=== PATIENT | female | born 2000 | race Asian ===

== ENCOUNTER 2020-07-23 10:40 | Outpatient (REF) | payer OTHER, SELFPAY ==
--- NOTE | 2020-07-23 10:46 | XR_ITS ---
EXAMINATION: XR LUMBOSACRAL SPINE CLINICAL INFORMATION: Radiculopathy, lumbar region COMPARISON: 06/12/2020 TECHNIQUE: Three views of the lumbosacral spine. FINDINGS: Mild left convex curvature of the lumbar spine is unchanged. Vertebral body and disc height is maintained without spondylolysis or spondylolisthesis. The sacroiliac joints are unremarkable. XR/XR lumbar spine 2-3V IMPRESSION: Unremarkable examination.
== END 2020-07-23 10:41 | disposition home or self-care (01) ==
LOC: HO.HMGCX 10:40
PROVIDERS: PCP Internal Medicine; Visit Provider Internal Medicine
DX: M54.16 Radiculopathy, lumbar region (principal)
CPT/HCPCS: 72100

== ENCOUNTER 2021-10-20 13:55 | Outpatient (REF) | payer OTHER, SELFPAY ==
[2021-10-20 17:20] LABS: Alanine Aminotransferase 16 U/L (0-31); Albumin Level 4.6 g/dL (3.5-5.0); Alkaline Phosphatase 57 U/L (39-117); Anion Gap 10 (12-20); Aspartate Amino Transferase 19 U/L (5-31); Bilirubin Total 0.3 mg/dL (0.0-1.0); Blood Urea Nitrogen 16 mg/dL (9-16); Calcium 9.5 mg/dL (8.4-10.2); Carbon Dioxide 25 mmol/L (22-29); Chloride 106 mmol/L (96-108); Cholesterol 152 mg/dL; Estimated Glomerular Filt Rate > 60; Glucose Fasting 97 mg/dL (60-99); HDL Cholesterol 46 mg/dL; Potassium 4.3 mmol/L (3.3-5.1); Sodium 137 mmol/L (135-145); Total Protein 7.4 g/dL (6.5-8.0)
[2021-10-20 17:26] LABS: TSH reflex Free T4 1.43 uIU/mL (0.32-4.0)
[2021-10-20 17:28] LABS: Vitamin B12 310 pg/mL (200-900)
[2021-10-20 17:30] LABS: LDL Cholesterol Calculated 99 mg/dl; Triglycerides 35 mg/dL
[2021-10-25 05:51] LABS: Vitamin D 25-OH, D2 <4 ng/mL; Vitamin D 25-OH, D3 15 ng/mL; Vitamin D 25-OH, Total 15 ng/mL (30-100)
== END 2021-10-20 13:56 | disposition home or self-care (01) ==
LOC: HO.HMGCLDS 13:55
PROVIDERS: Visit Provider Internal Medicine
DX: Z00.01 Encounter for general adult medical examination with abnormal findings (principal); M41.9 Scoliosis, unspecified; R20.2 Paresthesia of skin
CPT/HCPCS: 36415; 80053; 80061; 82306; 82607; 84443

== ENCOUNTER 2022-01-03 15:00 | Outpatient (RCR) | payer OTHER, SELFPAY ==
--- NOTE | 2021-11-12 15:54 | MHC.PT.EP ---
[facility] [place] [facility] [place] [facility] [place] [facility] [address] Rozina Davila [address] [phone] F: [phone] F: [phone] F: [phone] F: [phone] Physical Therapy Plan of Care Date of Evaluation: Date of Surgery: n/a Diagnosis: low back pain, scoliosis Assessment: Patient is a 21 year old female presenting to PT with complaints of pain in her low back. Pt reports onset of pain began 3 years ago due to being . She presents today with impairments in pain, lumbar AROM, +ttp R piriformis, hip strength, core strength. Pt's current occupation is none, with baseline physical activities including caring for 3 young kids, ADLs, ambulation, lifting. Pt expresses usp goal of reducing pain, and is motivated to work towards this in PT. Clinical presentation today is most consistent with signs and sx associated with possible piriformis syndrome and pt will benefit from skilled PT to address the following problems and impairments noted upon evaluation: pain, lumbar AROM, +ttp R piriformis, hip strength, core strength. These problems limit the patient with the following functional activities: lifting, caring for children, ADLs. The prescribed treatment plan of care is medically necessary. Co-morbidities of none were identified and taken into considerations of plan of care. Pt was educated on HEP, role of PT, prognosis, POC. Frequency and Duration: The patient will be seen 2 x week x 4 weeks Short Term Goals: Pt will demonstrate lumbar AROM in available range with min to no pain in 2 weeks. Pt will demonstrate improved hip MMT by 1/3 grade in 2 weeks for improved lumbopelvic stability. Pt will demonstrate ability to perform TA contraction with good muscle recruitment in 2 weeks. Quality Assurance Practice Manager Goals: Pt will demonstrate ability to lift her kids with min to no pain in 4 weeks for improved ability to care for her kids. Pt will demonstrate ability to complete all ADLs with min to no pain in 4 weeks for return to PLOF. Treatment Plan: Modalities to reduce pain, spasms and effusion. Manual therapy to restore motion and function. Therapeutic exercise to improve strength and flexibility. Neuromuscular re-education for posture and balance. Therapeutic activities to return to functional activities of daily living. Electronically signed by: Amina Vargas, PT, DPT, ATC Please sign and return to therapist. Thank you for your referral.
--- NOTE | 2022-01-25 08:07 | MHC.PT.DC ---
[facility] [place] Office [place] Office [place] Office [address] Rozina Davila [address] [phone] F: [phone] F: [phone] F: [phone] F: [phone] Physical Therapy Discharge Report Diagnosis: low back pain, scoliosis Date of Surgery: n/a Date of Evaluation: 11/12/21 Date of Discharge: 01/25/22 Treatments to Date: 7 Cancellations to Date: 4 No Shows to Date: 1 Discharge Status: Discharge Summary: Pt no showed her final scheduled appointment which was supposed to be her last session. Pt has not reached out to be rescheduled. Electronically signed by: Amina Vargas, PT, DPT, ATC Please sign and return to therapist. Thank you for your referral.
== END 2022-01-25 08:08 | disposition home or self-care (01) ==
LOC: HO.PTCHIC 15:00
PROVIDERS: PCP Internal Medicine; Visit Provider Internal Medicine
DX: M41.9 Scoliosis, unspecified (principal); M54.50 Low back pain, unspecified
CPT/HCPCS: 97110; 97140; 97161

== ENCOUNTER 2022-05-30 14:01 | Outpatient (REF) | payer OTHER, SELFPAY ==
[2022-05-30 15:03] LABS: Influenza A PCR NEGATIVE (Negative); Influenza B PCR NEGATIVE (Negative); Resp Syncy Virus RNA Qual PCR NEGATIVE (Negative); SARS COV2 PCR INHOUSE NEGATIVE (Negative)
== END 2022-05-30 14:02 | disposition home or self-care (01) ==
LOC: HO.LNP 14:01
PROVIDERS: Visit Provider Internal Medicine
DX: J02.9 Acute pharyngitis, unspecified (principal); R43.9 Unspecified disturbances of smell and taste; Z20.822 Contact with and (suspected) exposure to COVID-19
CPT/HCPCS: 0241U

== ENCOUNTER 2022-07-23 14:14 | Outpatient (REF) | payer OTHER, SELFPAY ==
--- NOTE | ~2022-07-23 | XR_ITS ---
EXAMINATION: XR CHEST CLINICAL INFORMATION: Cough COMPARISON: Chest x-ray August 16, 2018 TECHNIQUE: 2 views of the chest were obtained. FINDINGS: Cardiac silhouette is normal in size. The lungs are well aerated. There is no lobar consolidation. No pleural effusion or pneumothorax. No acute osseous abnormality. XR/XR chest 2V IMPRESSION: No acute pulmonary pathology.
== END 2022-07-23 14:15 | disposition home or self-care (01) ==
LOC: HO.HMGCX 14:14
PROVIDERS: PCP Internal Medicine; Visit Provider Physician Assistant Medical
DX: R05.9 Cough, unspecified (principal)
CPT/HCPCS: 71046

== ENCOUNTER 2022-12-27 09:06 | Outpatient (REF) | payer OTHER, SELFPAY ==
[2022-12-27 11:30] LABS: Hematocrit 39.3 % (37.0-47.0); Hemoglobin 12.5 g/dl (12.0-16.0); Mean Corpuscular HGB Conc 31.8 g/dl (31.0-35.0); Mean Corpuscular Hemoglobin 27.7 pg (27.0-33.0); Mean Corpuscular Volume 87.1 fL (80.0-98.0); Mean Platelet Volume 11.2 fL (9.4-12.3); Platelet Count 256 X10*3/uL (160-400); Red Blood Count 4.51 X10*6/uL (4.20-5.50); Red Cell Distribution Width 13.5 % (11.0-16.0); White Blood Count 6.7 X10*3/uL (4.8-10.8)
[2022-12-27 12:01] LABS: Alanine Aminotransferase 15 U/L (0-31); Albumin Level 4.3 g/dL (3.5-5.0); Alkaline Phosphatase 62 U/L (39-117); Aspartate Amino Transferase 18 U/L (5-31); Bilirubin Direct 0.1 mg/dL (0.0-0.5); Bilirubin Total 0.3 mg/dL (0.0-1.0); Cholesterol 180 mg/dL; HDL Cholesterol 52 mg/dL; LDL Cholesterol Calculated 116 mg/dl; Total Protein 7.3 g/dL (6.5-8.0); Triglycerides 62 mg/dL
[2022-12-27 12:05] LABS: Thyroid Stimulating Hormone 2.59 uIU/mL (0.32-4.0)
== END 2022-12-27 09:07 | disposition home or self-care (01) ==
LOC: HO.HMGCLDS 09:06
PROVIDERS: PCP Internal Medicine; Visit Provider Internal Medicine
DX: R42 Dizziness and giddiness (principal)
CPT/HCPCS: 36415; 80061; 80076; 84443; 85027

== ENCOUNTER 2023-04-21 13:25 | Outpatient (AMB) | payer OTHER, SELFPAY ==
[2023-04-21 13:27] VITALS: BP 122/70; PULSE 88; O2SAT 99; BMI 27.0
--- NOTE | 2023-04-21 13:27 | MHC.PC.OV ---
Vital Signs 04/21/23 13:27 Height 5 ft 3 in Weight 152 lb 8 oz BMI 27.0 BP 122/70 Blood Pressure Location Lt brachial Position Sitting Pulse 88 Pulse Source Pulse Oximeter Pulse Oximetry (%) 99 Intake Visit Reasons: PHY Allergies No Known Allergies Allergy (Verified 04/21/23 13:30) Medication List - Last Reconciled 04/21/23 by Hubert Cox MD No Known Home Meds Tobacco use date assessed: 04/21/23 Dental Screening Dental Screen Date: 04/21/23 Did you have a dental visit in the last 12 months?: No Did you have a dental problem in the last 6 months where you did not have access to dental care?: No Was dental information given to patient?: Yes HPI PHY HPI Details Patient is 23-year-old female came in today for physical examination She is complaining of recurrent headaches sometimes last up to a week. Patient says that headache starts above her left eye and they are throbbing in nature and usually half ahead and sometimes it goes all over her head. There is no flashes of light no nausea vomiting associated. I am starting her on amitriptyline 10 mg to be taken at night we will book another appointment in 3 weeks to see how patient is doing. Patient has had 3 times epidural injection for deliveries. Now she is complaining of pain lower thoracic area and is requesting a physical therapy. She has had similar pain in the past and physical therapy did help her. She is in need of OBGYN referral which I have placed patient would like to go to [facility]. She is deficient in vitamin-D I have sent supplement. Flu shot was given today. Follow-up 3 weeks for headache and 1 year for physical exam. [facility] Surgical History No pertinent past surgical history Family History Father HTN (hypertension) Mother No problems noted. Maternal Aunt Breast cancer Social History Housing: House Patient Tobacco Use Status: Never used Tobacco e-Cigarette/Vaping Use: Never Used Current occupational status: unemployed Cognitive needs: No Hearing needs: No Vision needs: No Questionnaire PHQ-9 Over the last 2 weeks, how often have you been bothered by any of the following problems? 1. Little interest or pleasure in doing things: not at all 2. Feeling down, depressed, or hopeless: not at all 3. Trouble falling or staying asleep, or sleeping too much: not at all 4. Feeling tired or having little energy: not at all 5. Poor appetite or overeating: not at all 6. Feeling bad about yourself - or that you are a failure or have let yourself or your family down: not at all 7. Trouble concentrating on things, such as reading the newspaper or watching television: not at all 8. Moving or speaking so slowly that other people could have noticed. Or the opposite - being so fidgety or restless that you have been moving around a lot more than usual: not at all 9. Thoughts that you would be better off or of hurting yourself in some way: not at all Total score: 0 Depression Screening Interpretation: Negative Depression Screening Done: Yes 95505 - PHQ-9 Billing: Yes Source: Developed by Drs. Santos Amato, Caitlin Adams, Riley Silva and colleagues, with an educational chastity from [employer]. Thrive Questionnaire Date Thrive assessed: 04/21/23 I am a: Patient What is your living situation today?: I have a steady place to live Within the past 12 months, did the food you bought not last and you didn't have the money to get more?: Never true Within the past 12 months, did you worry whether your food would run out before you got money to buy more?: Never true Do you have trouble paying for medicines?: No Do you have trouble getting transportation to medical appointments?: No Do you have trouble paying your heating and electricity bill?: No Do you have trouble taking care of your child, family member or friend?: No Do you have trouble with day-to-day activities such as bathing, preparing meals, shopping, managing finances, etc.?: No Are you currently unemployed and looking for a job?: No Are you interested in more education?: No Please select the resources that you would like help with: None Currently or been in a relationship where the following occur: I choose not to answer this question CEDRICK-7 AMB Questionnaire CEDRICK-7 Date CEDRICK - 7 assessed: 04/21/23 Feeling nervous, anxious, or on edge: 0 = Not at all Not being able to stop or control worryin = Not at all Worrying too much about different things: 0 = Not at all Trouble relaxin = Not at all Being so restless that it is hard to sit still: 0 = Not at all Becoming easily annoyed or irritable: 0 = Not at all Feeling afraid as if something awful might happen: 0 = Not at all Total CEDRICK-7 score (0-4 normal; 5-9 mild; 10-14 moderate; 15-21 severe): 0 Source: Developed by Drs. Santos Amato, Caitlin Adams, Riley Silva and colleagues, with an educational chastity from [employer]. CEDRICK-7 Assessment Billing CEDRICK-7 Assessment Tool: CEDRICK-7 Assessment 98092 Review of Systems Const Denies chills and Denies fever(s) Eyes Denies blurry vision ENT Denies nasal discharge, Denies nasal obstruction, Denies odynophagia and Denies sinus pain Card Denies chest pain at rest and Denies chest pain with activity Resp Denies cough and Denies hemoptysis GI Denies diarrhea, Denies odynophagia, Denies vomiting and Denies hematemesis Reports as per HPI Musc Denies abnormal gait Skin/Breast Reports as per HPI Neuro Denies Neuro-related abnormal movements, Denies Abnormal speech present, Denies abnormal gait and Denies Sensory deficit (Neuro) Psych Denies mood swings and Denies paranoia Endo Reports as per HPI Vu/Lymph Reports as per HPI Aller/Immun Reports as per HPI Physical exam (Primary Care) Vital Signs: Last Vital Signs Pulse 88 04/21/23 13:27 BP 122/70 04/21/23 13:27 Pulse Ox 99 04/21/23 13:27 BMI result Body Mass Index 27.0 Tobacco/Smoking Status: Tobacco use Status Tobacco use date assessed 04/21/23 04/21/23 13:34 Patient Tobacco Use Status Never used Tobacco 04/21/23 13:34 e-Cigarette/Vaping Use Never Used 04/21/23 13:34 PHQ-9: PHQ-9 Score PHQ-9: Total score 0 04/21/23 13:51 Depression Screening Interpretation: Negative Thrive Assessment: Date of Thrive Assessment Date Thrive assessed 04/21/23 04/21/23 13:34 Currently or been in a relationship where the following occur: I choose not to answer this question Const General: cooperative, comfortable and no acute distress Orientation/consciousness: patient oriented x3 HENMT Head: Yes normocephalic and Yes atraumatic Eyes General: appearance normal, both eyes and all related structures Pupils: Equal, round and reactive pupils present EOM: EOMs intact bilaterally Neck Neck: Yes supple and No lymphadenopathy Thyroid: Thyroid normal Lymphatic: no lymphadenopathy noted Chest Breast/axilla palpation: normal palpation of the breasts Resp Effort & Inspection: normal respiratory effort and able to speak in complete sentences Auscultation: clear to auscultation bilaterally Cardio Heart sounds: S1 normal heart sound present and S2 normal heart sound present GI Palpation (GI): Soft to palpation and nontender Auscultation: normal bowel sounds General: Yes no CVA tenderness Back/Spine/Pelvis Back: no CVA tenderness Skin General skin exam: elasticity normal and turgor normal Neuro General: patient oriented x3 and gait normal Cranial nerves: Yes Equal, round and reactive pupils present Speech: No Abnormal speech present Sensory Exam: No Sensory deficit (Neuro) Coordination: tandem gait normal and Romberg test negative Extrem General: Yes normal exam except as noted and No edema Office Procedures Flu Questionnaire Does the patient have a severe egg allergy?: No Does the patient have severe life threatening allergies?: No Does the patient have a fever or illness today?: No Has the patient ever had Guillain-[place] Syndrome?: No Has the patient ever had any past reaction to a flu shot?: No Immunizations flu vacc [id number] 6mos up(PF) 60 mcg(15 mcgx4)/0.5 mL IM syringe Performing Provider: Hubert Cox MD Performing Location: [facility] Administered by: Miguel Carolina CMA on 04/21/23 14:03 Dose Route Admin Location Dispensed Lot Number Expiration Date NDC Head Baggage Porter 0.5 mL IM Left Deltoid 0.5 mL [id number] 01/14/24 [id number] LUVHAN VIS Given Date VIS Provided VIS Publication Date 04/21/23 Single Vaccine 21 Eligibility Eligibility Date Funding Source Not [facility] Eligible 04/21/23 Private Assessment and Plan Assessment & Plan (1) Encounter for general adult medical examination with abnormal findings: Code(s): Z00.01 - Encounter for general adult medical examination with abnormal findings (2) Thoracic back pain: Code(s): M54.6 - Pain in thoracic spine Qualifiers: Back pain laterality: midline Chronicity: chronic Qualified Code(s): M54.6 - Pain in thoracic spine; G89.29 - Other chronic pain (3) Recurrent upper respiratory infection (URI): Code(s): J06.9 - Acute upper respiratory infection, unspecified (4) Migraine headache: Code(s): G43.909 - Migraine, unspecified, not intractable, without status migrainosus Qualifiers: Intractability: intractable Migraine type: periodic headache syndrome Qualified Code(s): G43.C1 - Periodic headache syndromes in child or adult, intractable Plan Patient is 23-year-old female came in today for physical examination She is complaining of recurrent headaches sometimes last up to a week. Patient says that headache starts above her left eye and they are throbbing in nature and usually half ahead and sometimes it goes all over her head. There is no flashes of light no nausea vomiting associated. I am starting her on amitriptyline 10 mg to be taken at night we will book another appointment in 3 weeks to see how patient is doing. Patient has had 3 times epidural injection for deliveries. Now she is complaining of pain lower thoracic area and is requesting a physical therapy. She has had similar pain in the past and physical therapy did help her. She is in need of OBGYN referral which I have placed [facility] She is deficient in vitamin-D I have sent supplement. Flu shot was given today. Follow-up 3 weeks for headache and 1 year for physical exam. Orders: Orders PT Evaluation and Treatment Today M54.6 - Pain in thoracic spine Complete Blood Count Auto Diff Today G43.909 - Migraine, unspecified, not intractable, without status migrainosus, J06.9 - Acute upper respiratory infection, unspecified, M54.6 - Pain in thoracic spine, Z00.01 - Encounter for general adult medical examination with abnormal findings Comprehensive [place]. Panel Fast Today G43.909 - Migraine, unspecified, not intractable, without status migrainosus, J06.9 - Acute upper respiratory infection, unspecified, M54.6 - Pain in thoracic spine, Z00.01 - Encounter for general adult medical examination with abnormal findings TSH reflex Free T4 Today G43.909 - Migraine, unspecified, not intractable, without status migrainosus, J06.9 - Acute upper respiratory infection, unspecified, M54.6 - Pain in thoracic spine, Z00.01 - Encounter for general adult medical examination with abnormal findings Vitamin D 25-OH (D2 and D3) Today G43.909 - Migraine, unspecified, not intractable, without status migrainosus, J06.9 - Acute upper respiratory infection, unspecified, M54.6 - Pain in thoracic spine, Z00.01 - Encounter for general adult medical examination with abnormal findings Lipid Panel Today G43.909 - Migraine, unspecified, not intractable, without status migrainosus, J06.9 - Acute upper respiratory infection, unspecified, M54.6 - Pain in thoracic spine, Z00.01 - Encounter for general adult medical examination with abnormal findings Referrals [employer] MARKETING MANAGER Referral Z01.419 - Encounter for gynecological examination (general) (routine) without abnormal findings Medications: New amitriptyline 10 mg PO BEDTIME 30 tabs 0RF cholecalciferol (vitamin D3) 25 mcg PO DAILY 90 days 90 caps 3RF Coding Level of Care Code Est Pt Prev Care 18-39y(12026) Diagnoses Encounter for general adult medical examination with abnormal findings Z00.01 Chronic midline thoracic back pain M54.6; G89.29 Back pain laterality: midline Chronicity: chronic Recurrent upper respiratory infection (URI) J06.9 Intractable periodic headache syndrome G43.C1 Intractability: intractable Migraine type: periodic headache syndrome Additional Codes CEDRICK-7 Assessment Billing - CEDRICK-7 Assessment Tool: CEDRICK-7 Assessment 79451 ([id number])
== END 2023-04-21 14:26 | disposition home or self-care (01) ==
PROVIDERS: Visit Provider Internal Medicine
DX: Z00.01 Encounter for general adult medical examination with abnormal findings (principal); M54.6 Pain in thoracic spine; G89.29 Other chronic pain; J06.9 Acute upper respiratory infection, unspecified; G43.C1 Periodic headache syndromes in child or adult, intractable; Z23 Encounter for immunization
CPT/HCPCS: 90471; 90686; 99395

== ENCOUNTER 2023-04-26 11:37 | Outpatient (REF) | payer OTHER, SELFPAY ==
[2023-04-30 23:43] LABS: Vitamin D 25-OH, D2 <4 ng/mL; Vitamin D 25-OH, D3 16 ng/mL; Vitamin D 25-OH, Total 16 ng/mL (30-100)
== END 2023-04-26 11:38 | disposition home or self-care (01) ==
LOC: HO.HMGCLDS 11:37
PROVIDERS: PCP Internal Medicine; Visit Provider Internal Medicine
DX: Z00.01 Encounter for general adult medical examination with abnormal findings (principal); J06.9 Acute upper respiratory infection, unspecified; G43.909 Migraine, unspecified, not intractable, without status migrainosus; M54.6 Pain in thoracic spine
CPT/HCPCS: 36415; 80053; 80061; 82306; 84443; 85025

== ENCOUNTER 2023-05-04 08:42 | Outpatient (AMB) | payer OTHER, SELFPAY ==
--- NOTE | 2023-05-04 08:57 | A.OFFPC_ITS ---
Intake Visit Reasons: 3 week fu (android [phone]) Allergies No Known Allergies Allergy (Verified 05/04/23 08:57) Medication List - Last Reconciled 05/04/23 by Hubert Cox MD amitriptyline 10 mg PO BEDTIME cholecalciferol (vitamin D3) 25 mcg PO DAILY 90 days Tobacco use date assessed: 05/04/23 Dental Screening Dental Screen Date: 05/04/23 Did you have a dental visit in the last 12 months?: No Did you have a dental problem in the last 6 months where you did not have access to dental care?: No Was dental information given to patient?: Patient declined HPI 3 week fu (android [phone]) HPI Details Patient is 23-year-old female this is a telemedicine video conference Patient was having migraine headaches she was started on amitriptyline 10 mg to be taken at night. she is feeling much better she is sleeping better and her headaches has resolved. I have sent refill for the patient she may continue that for 3 months and then after that she may stop and see how she feels. Labs done recently reviewed with the patient Her vitamin-D level is low, patient is already on supplement. [facility] Surgical History No pertinent past surgical history Family History Father HTN (hypertension) Mother No problems noted. Maternal Aunt Breast cancer Social History Housing: House Patient Tobacco Use Status: Never used Tobacco e-Cigarette/Vaping Use: Never Used Current occupational status: unemployed Cognitive needs: No Hearing needs: No Vision needs: No Questionnaire Thrive Questionnaire Date Thrive assessed: 04/21/23 AUDIT C Alcohol Use Questionnaire (AUDIT-C) 1. How often do you have a drink containing alcohol?: Never 3. How often do you have six or more drinks on one occasion?: Never Total Score: 0 Score Reviewed/Action Taken: Yes CEDRICK-7 AMB Questionnaire CEDRICK-7 Date CEDRICK - 7 assessed: 04/21/23 Source: Developed by Drs. Santos Amato, Caitlin Adams, Riley Silva and colleagues, with an educational chastity from [employer]. Review of Systems Const Denies chills and Denies fever(s) ENT Denies epistaxis and Denies nasal discharge Card Denies chest pain Resp Denies chest congestion, Denies cough and Denies hemoptysis GI Denies diarrhea and Denies nausea Skin/Breast Denies rash Neuro Reports no additional complaints Psych Reports no additional complaints Endo Reports no additional complaints Physical exam (Primary Care) Tobacco/Smoking Status: Tobacco use Status Tobacco use date assessed 05/04/23 05/04/23 08:58 Patient Tobacco Use Status Never used Tobacco 05/04/23 08:58 e-Cigarette/Vaping Use Never Used 05/04/23 08:58 Thrive Assessment: Date of Thrive Assessment Date Thrive assessed 04/21/23 05/04/23 08:58 Telehealth Telehealth Location of provider rendering services: practice address Location of patient: address on file Patient Identification confirmed using: Name, : Yes Telehealth method: video Patient verbally consented to treatment: Yes Patient verbally consented to billing insurance company: Yes Patient informed of any privacy concerns related to visit: Yes Minutes spent on Phone/Video with Pt.: 13 Assessment and Plan Assessment & Plan (1) Migraine headache: Code(s): G43.909 - Migraine, unspecified, not intractable, without status migrainosus Qualifiers: Migraine type: periodic headache syndrome Intractability: intractable Qualified Code(s): G43.C1 - Periodic headache syndromes in child or adult, intractable (2) Vitamin D deficiency: Code(s): E55.9 - Vitamin D deficiency, unspecified Plan Patient is 23-year-old female this is a telemedicine video conference Patient was having migraine headaches she was started on amitriptyline 10 mg to be taken at night. she is feeling much better she is sleeping better and her headaches has resolved. I have sent refill for the patient she may continue that for 3 months and then after that she may stop and see how she feels. Labs done recently reviewed with the patient Her vitamin-D level is low, patient is already on supplement. Medications: Refilled amitriptyline 10 mg PO BEDTIME 90 tabs 0RF Coding Level of Care Code Tele Est Pt Level 3 (70108) Diagnoses Intractable periodic headache syndrome G43.C1 Migraine type: periodic headache syndrome Intractability: intractable Vitamin D deficiency E55.9
== END 2023-05-04 12:07 | disposition home or self-care (01) ==
LOC: HO.HMGC 08:42
PROVIDERS: PCP Internal Medicine; Visit Provider Internal Medicine
DX: G43.C1 Periodic headache syndromes in child or adult, intractable (principal); E55.9 Vitamin D deficiency, unspecified
CPT/HCPCS: 99213

== ENCOUNTER 2023-06-29 14:07 | Outpatient (REF) | payer OTHER, SELFPAY ==
[2023-06-30 04:09] LABS: CT PCR NOT DETECTED (Not Detect.); NG PCR NOT DETECTED (Not Detect.)
[2023-06-30 13:45] LABS: BV Int Neg Control Negative (Negative); BV Int Pos Control Positive (Positive)
== END 2023-06-29 14:08 | disposition home or self-care (01) ==
LOC: HO.LAB 14:07
PROVIDERS: PCP Internal Medicine; Visit Provider Advanced Practice Midwife
DX: Z01.419 Encounter for gynecological examination (general) (routine) without abnormal findings (principal); N89.8 Other specified noninflammatory disorders of vagina; B37.31 Acute candidiasis of vulva and vagina; Z20.2 Contact with and (suspected) exposure to infections with a predominantly sexual mode of transmission
CPT/HCPCS: 0353U; 87480; 87510; 87660; 88142; 99385

== ENCOUNTER 2023-06-29 14:07 | Outpatient (AMB) | payer OTHER, SELFPAY ==
--- NOTE | 2023-06-29 14:12 | A.OFFVIS_ITS ---
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 She thinks she has never had an abnormal Pap smear but does not remember when the last 1 was she is sexually active with her but they use condoms she is not interested in any of the other methods or IUDs at this time. Her children are 3 4 and 5 years old. On questioning when I saw her vulva which was bright pink and very sore appearing she says she has been itching. She says she does not use pads other than with her periods her underwear is not cotton. [facility] Surgical History No pertinent past surgical history Family History Father HTN (hypertension) Mother No problems noted. Maternal Aunt Breast cancer Social History Housing: House Patient Tobacco Use Status: Never used Tobacco e-Cigarette/Vaping Use: Never Used Current occupational status: unemployed Cognitive needs: No Hearing needs: No Vision needs: No Female Reproductive History Menstrual Age of Menarche: 8 Duration of menses: 6-7 days Date of last menstrual period: 06/08/23 control method: none Total pregnancies: 3 Full term: 3 History of abnormal pap smear: No (unknown) Physical Exam Vital Signs: Last Vital Signs BP 110/68 06/29/23 14:13 BMI result Body Mass Index 28.3 Const General: healthy appearing, comfortable, no acute distress, well developed and alert Nutritional Appearance: average body habitus Orientation/consciousness: patient oriented x3 Limitations: no limitations HEENT Head: Yes normocephalic Neck Neck: Yes normal visual inspection Chest Chest palpation & inspection: normal inspection of the chest Breast/axilla inspection: normal inspection of the breasts and normal inspection of the axillae Breast/axilla palpation: normal palpation of the breasts and normal palpation of the axillae Resp Effort & Inspection: normal respiratory effort GI Inspection: Yes normal to inspection, No Abdominal wall edema and No distended Palpation (GI): Soft to palpation and nontender Other: External vulva appears very bright pink excoriated with creases of skin breakdown where skin has approximated skin consistent with moisture. General: Yes bladder normal to palpation External Female Exam: normal appearance of the urethra Speculum Exam - Vagina: normal appearance of the vagina, normal palpation and normal vaginal discharge Speculum Exam - Cervix: normal appearance of the cervix, normal palpation and nontender Bimanual exam- vagina & uterus: normal bimanual exam, normal palpation, uterine size normal, bladder normal to palpation, consistency normal, normal palpation, uterine mobility normal, uterine shape normal, No Cervical tenderness present, non-tender and no cervical motion tenderness Bimanual Exam- Adnexa, other: normal adnexae, no masses, normal and No adnexal tenderness Female genitals images: 2 1. Creases from moisture consistent with non exposure to air and being covered and consistent with yeast 2. as above Neuro General: patient oriented x3 Assessment & Plan Assessment & Plan (1) Encounter for routine gynecological examination: Code(s): Z01.419 - Encounter for gynecological examination (general) (routine) without abnormal findings (2) Well woman exam with routine gynecological exam: Code(s): Z01.419 - Encounter for gynecological examination (general) (routine) without abnormal findings (3) Vaginal itching: Code(s): N89.8 - Other specified noninflammatory disorders of vagina (4) Yeast infection involving the vagina and surrounding area: Comment: Recommend air cotton underwear and Monistat 7 inside an outside Code(s): B37.31 - Acute candidiasis of vulva and vagina Plan -----Discussed in this visit the following: healthy balanced diet, regular and consistent exercise, getting recommended health screens, doing the best she can for her particular health concerns, kegel exercises, pap smear screening and followup recommendations, mammography screening and SBE, normal changes in cycles in her life stage--- .----I reviewed available options for Control Methods and their associated side effect profiles. In particular, we discussed the method most of interest to her. She will stick with condoms. ---I reviewed her symptoms we reviewed what she may have done alleviate symptoms. I reviewed contributing factors to yeast infection including clothing that may be a little tight or does not permit air to pass to the vulva well, including non cotton underwear, nylon and polyester type workout clothes and yoga pants, use of panty liners pads for periods etc. My recommendations include use of the medication that we decided upon, allowing air to her vulva as much as possible including wearing cotton underwear and possibly no underwear at night when possible. Any other contributing factors were explored. I encouraged her not to scratch. I reviewed what to do when she feels symptoms first starting, (re-double her efforts at allowing air to the area.) Prescribed her miconazole 7 with refills that she can use both inside and outside I reviewed carefully that this was a cream that she could use both inside and outside. Decision made not to order anything else so that would be no confusion. The most important thing is to switch to the cotton underwear or go without on these and avoid any friction and irritation or sex for the next few days clean with only cool water. Orders: Orders 2 CT NG by PCR Today Z01.419 - Encounter for gynecological examination (general) (routine) without abnormal findings Bacterial Vaginosis Panel Today Z20.2 - Contact with and (suspected) exposure to infections with a predominantly sexual mode of transmission Pap Smear Today Z01.419 - Encounter for gynecological examination (general) (routine) without abnormal findings Medications: New 2 miconazole nitrate 2% (Miconazole-7) May use inside and outside 1 appful vaginal BEDTIME 7 days 45 grams 2RF Coding Level of Care Code New Pt Prev Care 18-39yr([id number] Diagnoses Encounter for routine gynecological examination Z01.419 Well woman exam with routine gynecological exam Z01.419 Vaginal itching N89.8 Yeast infection involving the vagina and surrounding area B37.31
[2023-06-29 14:13] VITALS: BP 110/68; BMI 28.3
== END 2023-06-29 15:12 | disposition home or self-care (01) ==
LOC: HO.HWS 14:07
PROVIDERS: PCP Internal Medicine; Visit Provider Advanced Practice Midwife
DX: Z01.419 Encounter for gynecological examination (general) (routine) without abnormal findings (principal); N89.8 Other specified noninflammatory disorders of vagina; B37.31 Acute candidiasis of vulva and vagina
CPT/HCPCS: 99385

== ENCOUNTER 2024-01-24 08:35 | Outpatient (AMB) | payer OTHER, SELFPAY ==
[2024-01-24 08:41] VITALS: BP 110/74; PULSE 91; O2SAT 99; BMI 26.2
--- NOTE | 2024-01-24 08:41 | MHC.PC.OV ---
Vital Signs 01/24/24 08:41 Height 5 ft 3 in Weight 148 lb BMI 26.2 BP 110/74 Blood Pressure Location Lt brachial Position Sitting Pulse 91 Pulse Source Pulse Oximeter Pulse Oximetry (%) 99 Oxygen Delivery Method Room Air Intake Visit Reasons: Migraine Allergies No Known Allergies Allergy (Verified 01/24/24 08:42) Medication List - Last Reconciled 01/24/24 by Hubert Cox MD No Known Home Meds Tobacco use date assessed: 01/24/24 Dental Screening Dental Screen Date: 01/24/24 Did you have a dental visit in the last 12 months?: No Did you have a dental problem in the last 6 months where you did not have access to dental care?: No Was dental information given to patient?: No HPI Migraine HPI Details Patient is 23-year-old female came in today to talk about few medical problems Patient have a history migraine, she was prescribed amitriptyline 10 mg last visit in April of last year Which did benefitted her and her migraines got better. Then patient has stopped the medication thinking that she no longer needed And her headache started again. She is requesting a refill on that medication. Also complaining of feeling dizzy when she stands up, which is a chronic problem for the patient She says that when she stands up suddenly everything becomes dark for few seconds. We talked about proper hydration, I am booking her appointment with the neurologist as well for further evaluation Most likely patient have autonomic dysfunction She has developed eczema left foot which is pruritic I have sent clobetasol cream for that to be used to b.i.d. for couple of weeks and then stop. She continued to have mid back pain where she had epidural injection 3 times Physical therapy order placed, print out provided to patient as she lives in [place] and would like to go to physical therapy in [place]. Bleeding of severe tiredness all day Last time she had labs more than 6 months ago, I have placed a new order for her Her menstrual cycle is regular and her periods are not heavy. We will address as per lab reports Patient a physical exam appointment already scheduled for April. [facility] Surgical History No pertinent past surgical history Family History Father HTN (hypertension) Mother No problems noted. Maternal Aunt Breast cancer Social History Housing: House Patient Tobacco Use Status: Never used Tobacco e-Cigarette/Vaping Use: Never Used service: No Current occupational status: unemployed Cognitive needs: No Hearing needs: No Vision needs: No Female Reproductive History Menstrual Age of Menarche: 8 Questionnaire PHQ-9 Over the last 2 weeks, how often have you been bothered by any of the following problems? 1. Little interest or pleasure in doing things: not at all 2. Feeling down, depressed, or hopeless: not at all 3. Trouble falling or staying asleep, or sleeping too much: not at all 4. Feeling tired or having little energy: not at all 5. Poor appetite or overeating: not at all 6. Feeling bad about yourself - or that you are a failure or have let yourself or your family down: not at all 7. Trouble concentrating on things, such as reading the newspaper or watching television: not at all 8. Moving or speaking so slowly that other people could have noticed. Or the opposite - being so fidgety or restless that you have been moving around a lot more than usual: not at all 9. Thoughts that you would be better off or of hurting yourself in some way: not at all Total score: 0 Depression Screening Interpretation: Negative Depression Screening Done: Yes 55226 - PHQ-9 Billing: Yes Source: Developed by Drs. Santos Amato, Caitlin Adams, Riley Silva and colleagues, with an educational chastity from [employer]. Thrive Questionnaire Date Thrive assessed: 01/24/24 I am a: Patient What is your living situation today?: I have a steady place to live Within the past 12 months, did the food you bought not last and you didn't have the money to get more?: Never true Within the past 12 months, did you worry whether your food would run out before you got money to buy more?: Never true Do you have trouble paying for medicines?: No Do you have trouble getting transportation to medical appointments?: No Do you have trouble paying your heating and electricity bill?: No Do you have trouble taking care of your child, family member or friend?: No Do you have trouble with day-to-day activities such as bathing, preparing meals, shopping, managing finances, etc.?: No Are you currently unemployed and looking for a job?: No Are you interested in more education?: No Please select the resources that you would like help with: None Currently or been in a relationship where the following occur: No concerns reported THRIVE Score: 0 AUDIT C Alcohol Use Questionnaire (AUDIT-C) 1. How often do you have a drink containing alcohol?: Never 3. How often do you have six or more drinks on one occasion?: Never Total Score: 0 Score Reviewed/Action Taken: Yes CEDRICK-7 AMB Questionnaire CEDRICK-7 Date CEDRICK - 7 assessed: 01/24/24 Feeling nervous, anxious, or on edge: 0 = Not at all Not being able to stop or control worryin = Not at all Worrying too much about different things: 0 = Not at all Trouble relaxin = Not at all Being so restless that it is hard to sit still: 0 = Not at all Becoming easily annoyed or irritable: 0 = Not at all Feeling afraid as if something awful might happen: 0 = Not at all Total CEDRICK-7 score (0-4 normal; 5-9 mild; 10-14 moderate; 15-21 severe): 0 Source: Developed by Drs. Santos Amato, Caitlin Adams, Riley Silva and colleagues, with an educational chastity from [employer]. CEDRICK-7 Assessment Billing CEDRICK-7 Assessment Tool: CEDRICK-7 Assessment 55756 Review of Systems Const Denies chills and Denies fever(s) ENT Denies epistaxis and Denies nasal discharge Card Denies chest pain Resp Denies chest congestion, Denies cough and Denies hemoptysis GI Denies diarrhea and Denies nausea Skin/Breast Denies rash Neuro Reports no additional complaints Psych Reports no additional complaints Endo Reports no additional complaints Physical exam (Primary Care) Vital Signs: Last Vital Signs Pulse 91 01/24/24 08:41 BP 110/74 01/24/24 08:41 Pulse Ox 99 01/24/24 08:41 Oxygen Delivery Method Room Air 01/24/24 08:41 BMI result Body Mass Index 26.2 Tobacco/Smoking Status: Tobacco use Status Tobacco use date assessed 01/24/24 01/24/24 08:43 Patient Tobacco Use Status Never used Tobacco 01/24/24 08:43 e-Cigarette/Vaping Use Never Used 01/24/24 08:43 PHQ-9: PHQ-9 Score PHQ-9: Total score 0 01/24/24 08:59 Depression Screening Interpretation: Negative Thrive Assessment: Date of Thrive Assessment Date Thrive assessed 01/24/24 01/24/24 08:43 Currently or been in a relationship where the following occur: No concerns reported Const General: cooperative, comfortable and no acute distress Orientation/consciousness: patient oriented x3 HENMT Head: Yes normocephalic Eyes General: appearance normal, both eyes and all related structures Neck Neck: Yes supple Resp Effort & Inspection: normal respiratory effort, no cough and no stridor Cardio Rhythm: regular rhythm Heart sounds: S1 normal heart sound present and S2 normal heart sound present Skin General skin exam: turgor normal Neuro General: patient oriented x3, tone normal and moves all extremities Extrem Right lower extremity: no edema Left lower extremity: no edema Assessment and Plan Assessment & Plan (1) Migraine headache: Code(s): G43.909 - Migraine, unspecified, not intractable, without status migrainosus Qualifiers: Intractability: intractable Migraine type: periodic headache syndrome Qualified Code(s): G43.C1 - Periodic headache syndromes in child or adult, intractable (2) Eczema: Code(s): L30.9 - Dermatitis, unspecified Qualifiers: Eczema type: unspecified Qualified Code(s): L30.9 - Dermatitis, unspecified (3) Tired: Code(s): R53.83 - Other fatigue (4) Mid back pain: Code(s): M54.9 - Dorsalgia, unspecified (5) Dizziness: Code(s): R42 - Dizziness and giddiness Plan Patient is 23-year-old female came in today to talk about few medical problems Patient have a history migraine, she was prescribed amitriptyline 10 mg last visit in April of last year Which did benefitted her and her migraines got better. Then patient has stopped the medication thinking that she no longer needed And her headache started again. She is requesting a refill on that medication. Also complaining of feeling dizzy when she stands up, which is a chronic problem for the patient She says that when she stands up suddenly everything becomes dark for few seconds. We talked about proper hydration, I am booking her appointment with the neurologist as well for further evaluation Most likely patient have autonomic dysfunction She has developed eczema left foot which is pruritic I have sent clobetasol cream for that to be used to b.i.d. for couple of weeks and then stop. She continued to have mid back pain where she had epidural injection 3 times Physical therapy order placed, print out provided to patient as she lives in [place] and would like to go to physical therapy in [place]. Bleeding of severe tiredness all day Last time she had labs more than 6 months ago, I have placed a new order for her Her menstrual cycle is regular and her periods are not heavy. We will address as per lab reports Patient a physical exam appointment already scheduled for April. Orders: Orders Comprehensive Met. Panel Today G43.C1 - Periodic headache syndromes in child or adult, intractable, L30.9 - Dermatitis, unspecified, R53.83 - Other fatigue, Z01.419 - Encounter for gynecological examination (general) (routine) without abnormal findings TSH reflex Free T4 Today G43.C1 - Periodic headache syndromes in child or adult, intractable, L30.9 - Dermatitis, unspecified, R53.83 - Other fatigue, Z01.419 - Encounter for gynecological examination (general) (routine) without abnormal findings PT Evaluation and Treatment Today M54.9 - Dorsalgia, unspecified Complete Blood Count Auto Diff Today G43.C1 - Periodic headache syndromes in child or adult, intractable, L30.9 - Dermatitis, unspecified, R53.83 - Other fatigue, Z01.419 - Encounter for gynecological examination (general) (routine) without abnormal findings LDL Cholesterol Direct Today G43.C1 - Periodic headache syndromes in child or adult, intractable, L30.9 - Dermatitis, unspecified, R53.83 - Other fatigue, Z01.419 - Encounter for gynecological examination (general) (routine) without abnormal findings Vitamin D 25-OH (D2 and D3) Today G43.C1 - Periodic headache syndromes in child or adult, intractable, L30.9 - Dermatitis, unspecified, R53.83 - Other fatigue, Z01.419 - Encounter for gynecological examination (general) (routine) without abnormal findings Vitamin B12 Today G43.C1 - Periodic headache syndromes in child or adult, intractable, L30.9 - Dermatitis, unspecified, R53.83 - Other fatigue, Z01.419 - Encounter for gynecological examination (general) (routine) without abnormal findings Referrals Neurology Referral G43.C1 - Periodic headache syndromes in child or adult, intractable, R42 - Dizziness and giddiness Medications: New clobetasol 0.05% 1 appl topical BID 2 weeks 100 grams 0RF Changed From amitriptyline 10 mg PO BEDTIME 30 tabs 0RF To amitriptyline 10 mg PO BEDTIME 90 days 90 tabs 0RF Coding Level of Care Code Est Pt Level 4 (12507) Complex EM visit Add On G2211 Diagnoses Intractable periodic headache syndrome G43.C1 Intractability: intractable Migraine type: periodic headache syndrome Eczema, unspecified type L30.9 Eczema type: unspecified Tired R53.83 Mid back pain M54.9 Dizziness R42 Additional Codes CEDRICK-7 Assessment Billing - CEDRICK-7 Assessment Tool: CEDRICK-7 Assessment 96221 ([id number])
== END 2024-01-24 17:44 | disposition home or self-care (01) ==
PROVIDERS: PCP Internal Medicine; Visit Provider Internal Medicine
DX: G43.C1 Periodic headache syndromes in child or adult, intractable (principal); L30.9 Dermatitis, unspecified; R53.83 Other fatigue; M54.9 Dorsalgia, unspecified; R42 Dizziness and giddiness
CPT/HCPCS: 99214; G2211

== ENCOUNTER 2024-01-24 09:01 | Outpatient (REF) | payer OTHER, SELFPAY ==
[2024-01-24 10:05] LABS: MANUAL DIFF FLAG NO
[2024-01-24 10:15] LABS: Basophils Percent Auto 0.4 % (0-2); Eosinophils Absolute Auto 0.1 X10*3/uL (0.0-0.4); Hematocrit 40.2 % (37.0-47.0); Hemoglobin 13.1 g/dl (12.0-16.0); Imm Gran Abs Auto 0.02 X10*3/uL (0.00-0.03); Imm Gran Pct Auto 0.3 % (0.0-0.4); Lymphocytes Absolute Auto 2.5 X10*3/uL (1.2-4.9); Lymphocytes Percent Auto 32.2 % (20-40); Mean Corpuscular HGB Conc 32.6 g/dl (31.0-35.0); Mean Corpuscular Hemoglobin 27.8 pg (27.0-33.0); Mean Corpuscular Volume 85.2 fL (80.0-98.0); Mean Platelet Volume 10.7 fL (9.4-12.3); Monocytes Absolute Auto 0.5 X10*3/uL (0.1-1.2); Monocytes Percent Auto 5.9 % (2-11); Neutrophils Absolute Auto 4.6 x10*3/uL (2.0-8.3); Neutrophils Percent Auto 60.2 % (45-73); Platelet Count 258 X10*3/uL (160-400); Red Blood Count 4.72 X10*6/uL (4.20-5.50); Red Cell Distribution Width 13.4 % (11.0-16.0); White Blood Count 7.6 X10*3/uL (4.8-10.8)
[2024-01-24 10:58] LABS: Alanine Aminotransferase 15 U/L (0-31); Albumin Level 4.4 g/dL (3.5-5.0); Alkaline Phosphatase 60 U/L (39-117); Anion Gap 12 (12-20); Aspartate Amino Transferase 16 U/L (5-31); Bilirubin Total 0.3 mg/dL (0.0-1.0); Blood Urea Nitrogen 13 mg/dL (9-16); Calcium 9.4 mg/dL (8.4-10.2); Carbon Dioxide 22 mmol/L (22-29); Chloride 109 mmol/L (96-108); Estimated Glomerular Filt Rate > 60; Glucose Random 97 mg/dL (60-115); Potassium 3.8 mmol/L (3.3-5.1); Sodium 139 mmol/L (135-145); Total Protein 7.3 g/dL (6.5-8.0)
[2024-01-24 11:17] LABS: Vitamin B12 480 pg/mL (200-900)
[2024-01-28 17:33] LABS: LDL Cholesterol Direct 117 mg/dL (<100); Vitamin D 25-OH, D2 <4 ng/mL; Vitamin D 25-OH, D3 22 ng/mL; Vitamin D 25-OH, Total 22 ng/mL (30-100)
== END 2024-01-24 09:02 | disposition home or self-care (01) ==
LOC: HO.HMGCLDS 09:01
PROVIDERS: PCP Internal Medicine; Visit Provider Internal Medicine
DX: Z01.419 Encounter for gynecological examination (general) (routine) without abnormal findings (principal); L30.9 Dermatitis, unspecified; R53.83 Other fatigue; G43.C1 Periodic headache syndromes in child or adult, intractable
CPT/HCPCS: 36415; 80053; 82306; 82607; 83721; 84443; 85025

== ENCOUNTER → 2024-12-07 09:26 | Outpatient (BNVA) | payer OTHER, SELFPAY | PROVIDERS: PCP Internal Medicine; Visit Provider Physician Assistant Medical | DX: Z13.89 Encounter for screening for other disorder (principal) ==

== ENCOUNTER 2025-07-08 07:59 | Outpatient (REF) | payer BC, MEDICAID, SELFPAY ==
[2025-07-08 10:41] LABS: MANUAL DIFF FLAG NO
[2025-07-08 10:47] LABS: Hematocrit 39.7 % (37.0-47.0); Hemoglobin 12.8 g/dl (12.0-16.0); Imm Gran Abs Auto 0.02 X10*3/uL (0.00-0.03); Imm Gran Pct Auto 0.2 % (0.0-0.4); Lymphocytes Absolute Auto 2.7 X10*3/uL (1.2-4.9); Mean Corpuscular HGB Conc 32.2 g/dl (31.0-35.0); Mean Corpuscular Hemoglobin 27.9 pg (27.0-33.0); Mean Corpuscular Volume 86.5 fL (80.0-98.0); NRBC Abs Auto 0.000 X10*3/uL (0.0-0.012); NRBC Pct Auto 0.0 /100WBC (0.0-0.2); Platelet Count 301 X10*3/uL (160-400); Red Blood Count 4.59 X10*6/uL (4.20-5.50); White Blood Count 8.3 X10*3/uL (4.8-10.8)
[2025-07-08 11:20] LABS: Alanine Aminotransferase 20 U/L (0-31); Albumin Level 4.5 g/dL (3.5-5.0); Alkaline Phosphatase 70 U/L (39-117); Anion Gap 11 (12-20); Aspartate Amino Transferase 26 U/L (5-31); Blood Urea Nitrogen 23 mg/dL (9-16); Calcium 9.2 mg/dL (8.4-10.2); Carbon Dioxide 25 mmol/L (22-29); Chloride 109 mmol/L (96-108); Cholesterol 161 mg/dL (<200); Estimated Glomerular Filt Rate > 60; HDL Cholesterol 42 mg/dL (>40); Potassium 4.1 mmol/L (3.3-5.1); Sodium 141 mmol/L (135-145); Total Protein 7.0 g/dL (6.5-8.0); Triglycerides 67 mg/dL (<150)
[2025-07-12 12:59] LABS: Vitamin D 25-OH, D2 <4 ng/mL; Vitamin D 25-OH, D3 12 ng/mL; Vitamin D 25-OH, Total 12 ng/mL (30-100)
== END 2025-07-08 08:00 | disposition home or self-care (01) ==
LOC: HO.HMGCLDS 07:59
PROVIDERS: PCP Internal Medicine; Visit Provider Internal Medicine
DX: Z00.01 Encounter for general adult medical examination with abnormal findings (principal); E55.9 Vitamin D deficiency, unspecified; G43.C1 Periodic headache syndromes in child or adult, intractable; R42 Dizziness and giddiness; Z13.31 Encounter for screening for depression; Z23 Encounter for immunization; Z13.6 Encounter for screening for cardiovascular disorders
CPT/HCPCS: 36415; 80053; 80061; 82306; 84443; 85025; 90471; 90656; 96127

== ENCOUNTER 2025-07-08 07:59 | Outpatient (AMB) | payer BC, MEDICAID, SELFPAY ==
--- OUTSIDE RECORDS SUMMARY | 2025-07-08 08:03 | XMS_ITS | Clinical Summary ---
Author Organization [address] Address [address] [place] [address] Phone Care Team Providers Care Private Tutor Name Role Phone Hubert Cox MD Primary Care Provider [phone] Allergies No known active allergies Medications vitamin iron fum-folic acid 28-0.8 mg per tablet Take 1 tablet by mouth 1 (one) time each day with breakfast. 12/04/2024 Active Active Problems Problem Noted Date Diagnosed Date 12/07/2024 care following vaginal delivery 12/04 Encounter for supervision of normal in multigravida in first trimester 06/10/2024 Overview (10/09/2024): 1. [facility] site: [address] 2. Delivery site: [facility] 3. Mobile Mommas: 4. Dating criteria: LMP only 5. Blood type: O+ 6. Genetic screening: Date: Result: Panorama: ordered Horizon: ordered Nuchal: ordered Survey: MSAFP: declined 6. GBS: Date: 7. FOB name: Rosy Perez, 8. Plans A. Epidural or other pain management - epidural B. Labor support identified - and her mom C. Tdap - Date: Flu - Date: 07/09/24 D. Breast or Bottle feed: both breast and bottle E. Baby's name -Juan Luis F. Circumcision - yes if male 9. Hospital Course: History of blood transfusion 06/10/2024 Overview (06/10/2024): for post hemorrhage (needed Bakri balloon after delivery, 1 unit PRBC. 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 A small number of Cystic Fibrosis (CF) carriers may have mild respiratory or other CF- related symptoms. If this individual's partner is a carrier for Cystic Fibrosis, their chance to have a child with this condition is 1 in 4 (25%). Carrier screening for this individual's partner is suggested. 05/17/24 pt notified. Order form/test kit at desk for FOB testing Resolved Problems Problem Noted Date Diagnosed Date Resolved Date Uterine contractions 12/01/2024 025 Encounters Date Type Department Care Team Description 06/26/2025 5:24 AM EST - 06/26/2025 9:28 AM EST Emergency [facility] Emergency [address] [place] [address] Dia Copeland MD Other migraine without status migrainosus, not intractable (Primary Dx); Dizziness; Right thigh pain; Right leg numbness Discharge Disposition: Home or Self Care from Last 3 Months Immunizations Immunization Administration Dates Next Due Influenza Quadravalent, MDCK , 0.5ml, preservative free (Flucelvax) 6mo and older 04/08/2020,03/29/2019,03/30/2018 Influenza trivalent, MDCK, 0 .5mL, preservative free (Flucelvax) 6mo and older 07/09/2024 Rubella 11/27/2018,11/02/2017 Tdap Tetanus diptheria acell ular pertussis (Boostrix; Adacel) 7yo and older 09/11/2024,04/08/2020,03/29/2019,2017 Varicella live (Varivax) 12m o and older 11/27/2018 Surgical History Surgery Date Site/Laterality Comments OTHER SURGICAL HISTORY PROCEDURE: DENIES PREVIOUS SURGERY Medical History Medical History Date Comments Tachycardia DX:Tachycardia; COMMENT: referred to cardio 07/2016, everything was normal Migraine DX:Migraine; COM MENT: better now (last one 2-4 months ago) History of blood transfusion DX: History of blood transfusion; COMMENT: for post hemorrhage (needed Bakri balloon after delivery) Family History Medical History Relation Name Comments Breast cancer Aunt Maternal Side No Known Problems Father No Known Problems Maternal Grandfather Un known Health Hx Other: Cardiac Issues Maternal Grandmother Hypertension Mother No Known Problems Paternal Grandfather Un known Health Hx No Known Problems Paternal Grandmother No Known Problems Sister 1 No Known Problems Sister 2 No Known Problems Son Breast cancer Neg Hx Colon cancer Neg Hx Ovarian cancer Neg Hx Pancreatic cancer Neg Hx Prostate cancer Neg Hx Uterine cancer Neg Hx Relation Name Status Comments Aunt Father Alive Maternal Grandfather Maternal Grandmother Alive Mother Alive Paternal Grandfather Paternal Grandmother Alive Sister 1 Alive Sister 2 Alive Son Alive Social History Tobacco Use Types Packs/Day Years Used Date Smoking Tobacco: Never Smokeless Tobacco: Never Alcohol Use Standard Drinks/Week Comments No 0 (1 standard drink = 0.6 oz pur e alcohol) Housing Instability Answer Date Recorde d Are you worried that in the next 2 months you may not have stable housing? No 12/07/2024 Food Access & Nutrition Answer Date Rec orded Do you have access to a vari ety of food including fruits and vegetables? Yes 12/07/2024 Access to Healthcare Answer Date Record ed Within the last 3 months, ho w many times did you visit the emergency department for your medical care? 0 12/07/2024 Health Literacy Answer Date Recorded How often do you need to hav e someone help you when you read instructions, pamphlets, or other written material from your doctor or pharmacy? Never 12/07/2024 Caregiver: How often do you need to have someone help you when you read instructions, pamphlets, or other written material from your doctor or pharmacy? Not on file 12/07/2024 Financial Risk Answer Date Recorded How hard is it for you to pa y for the very basics like food, housing, medical care, and air conditioning / heating? Patient declined 12/07/2024 Transportation Answer Date Recorded Has the lack of transportati on kept you from meetings, work, or from getting things needed for daily living? No Has the lack of transportati on kept you from medical appointments or from getting medications? No 12/07/2024 Social Isolation Answer Date Recorded How often do you feel lonely or isolated from th ose around you? Never 12/07/2024 Food Risk Answer Date Recorded Within the past 12 months we worried whether our food would run out before we got money to buy more. Never true 12/07/2024 Within the past 12 months th e food we bought just didn't last and we didn't have money to get more. Never true 12/07/2024 Dependent Care Answer Date Recorded Do you need help finding or paying for care for your loved ones. For example, child adolescent care or elderly care for an older adult? Patient declined 12/07/2024 Education Answer Date Recorded Do you think completing more education or training, like finishing a GED, going to college, or learning a trade, would be helpful for you? Patient declined 12/07/2024 Employment and Income Answer Date Recor ded During the last four weeks, have you been actively looking for work? Patient declined 12/07/2024 Living Situation Answer Date Recorded What is your living situation? Unrecognized valu e 12/07/2024 Interpersonal Safety Answer Date Record ed Physical Abuse Unrecognized value 12/07/2024 Verbal Abuse Unrecognized value 12/07/2024 Comments No Sex and Gender Information Value Date Recorded Sex Assigned at Female 08/13/2024 3:34 PM EST Legal Sex Female 9:54 AM EST Gender Identity Female 08/13/2024 3:34 PM EST Sexual Orientation Straight 08/13/2024 3: 34 PM EST Obstetrics History Para Term AB IAB SAB Ectopic Multiple Livin g Live Births 4 4 4 0 0 0 4 4 Date Outcome GA Total Labor Labor/2nd/3rd Weight Sex Type Anes PTL Yasmin A1 A5 Name Clin 2017 Term 39w 4d 13h 10m 11h 00m/1h 59m/0h 11m 3440 g (121.3 oz) M Vag-S pont Epidur al,Gen eral Y Livin g 8 9 Kavya richey CNM/E gisela parisi MD Delivery Location:[facility] Comments:PPH - needed Bakri balloon after manual exploration uterus in OR. Received 1 unit PRBC. nuchal x 1. GBS neg. 2018 Term 39w 2d 3204 g (113 oz) M Vag-S pont Epidur al N Livin g Codie vuong, CNM Complications:None Delivery Location:[facility] 2019 Term 39w 2d 6h 44m 6h 33m/0h 03m/0h 08m 3572 g (126 oz) M Vag-S pont Epidur al N Livin g 8 9 Sophie Allred and CNM Complications:None Delivery Location:[facility] 2024 Term 39w 4d 17h 11m 17h 02m/0h 05m/0h 04m 2770 g (97.7 oz) M Vag-S pont Epidur al N Livin g 9 9 Juan Luis Pollock , CNM Complications:None Delivery Location:[facility] Last Filed Vital Signs Vital Sign Reading Time Taken Comments Blood Pressure 105/62 06/26/2025 7:46 AM EST Pulse 84 06/26/2025 7:46 AM EST Temperature 36.6 C (97.9 F) 06/26/2025 7:46 AM EST Respiratory Rate 17 06/26/2025 7:46 AM EST Oxygen Saturation 100% 06/26/2025 7:46 AM EST Inhaled Oxygen Concentration - - Weight 71.7 kg (158 lb) 06/25/2025 11:39 PM EST Height 160 cm (5' 3 ) 06/25/2025 11:39 PM EST Body Mass Index 27.99 06/25/2025 11:39 PM EST Plan of Treatment Health Maintenance Due Date Last Done Comments Hepatitis B Vaccines (1 of 3 - 19+ 3-dose series) 2017 Hepatitis C Screening 06/14/2022 Cervical Cancer Screening: Pap Smear 12/18/2022 12/19/2019, 12/17/2019 Depression Screening 07/17/2024 HPV Vaccines (1 - 3-dose SCDM series) 2025 COVID-19 Vaccine (2024- season) 2025 Influenza Vaccine (#1) 2025 , 04/21/2023, 04/08/2020, Additional history exists Social Influencers of Health Screening 12/07/2025 12/07/2024 DTaP,Tdap,and Td Vaccines (6 - Td or Tdap) 09/11/2034 09/11/2024, 04/08/2020, 03/29/2019, Additional history exists RSV Immunization Adult Patients (1 - 1-dose 75+ series) 2073 Meningococcal ACWY Vaccine Aged Out 06/01/2017 N o longer eligible based on patient's age to complete this topic Varicella Vaccines Aged Out 11/27/2018 No longer eligible based on patient's age to complete this topic HIV Screening Completed 05/09/2024 Gonorrhea/Chlamydia Screening Discontinued 05/23/2024 HIB Vaccines Aged Out No longer eligi ble based on patient's age to complete this topic Hepatitis A Vaccines Aged Out No long er eligible based on patient's age to complete this topic IPV Vaccines Aged Out No longer eligi ble based on patient's age to complete this topic MMR Vaccines Aged Out No longer eligi ble based on patient's age to complete this topic Meningococcal B Vaccine Aged Out No l onger eligible based on patient's age to complete this topic Pneumococcal Vaccine: Pediatrics (0 to 5 Years) and At-Risk Patients (6 to 49 Years) Aged Out No longer eligible based on patient's age to complete this topic RSV Immunization Patients Under 20 months Aged Out No longer eligible based on patient's age to complete this topic Procedures Procedure Name Priority Date/Time Associated Diagnosis Comments ECG ANNOTATED 06/27/2025 CT ANGIO HEAD/NECK WO AND/OR W CONTRAST STAT 06/26/2025 7:20 AM EST CBC WITH AUTO DIFFERENTIAL STAT 06/26/2025 6:05 AM EST HCG, SERUM, QUALITATIVE STAT 06/26/2025 6:05 AM EST COMPREHENSIVE METABOLIC PANEL STAT 06/26/2025 6:05 AM EST PROTHROMBIN TIME WITH INR STAT 06/26/2025 6:05 AM EST ACTIVATED PARTIAL THROMBOPLASTIN TIME STAT 06/26/2025 6:05 AM EST CBC AND DIFFERENTIAL STAT 06/26/2025 6:[address] HEAD WO CONTRAST STAT 06/26/2025 1 2:41 AM EST POCT GLUCOSE BLOOD Routine 06/26/2025 12 :30 AM EST POC , URINE DIAGNOSTIC STAT 06/26/2025 12:22 AM EST ECG 12-LEAD STAT 06/26/2025 12:14 AM EST CHLAMYDIA TRACHOMATIS AND NEISSERIA GONORRHOEAE PCR Routine 05/23/2024 11:19 AM EST Normal in multigravida in first trimester HM PAP SMEAR Routine 12/19/2019 from Last 3 Months or Most Recently Relevant to Health Maintenance Results * ECG-Annotated (06/27/2025) us Provider Onbase MD ECG ORDERABLES Final Result * CT Angio Head/Neck wo and/or w Contrast (06/26/2025 7:20 AM EST) Anatomical Region Laterality Modality Head and Neck Computed Tomogra phy 06/26/2025 8:04 AM EST Impressions 06/26/2025 8:15 AM EST Normal exam -------- FINAL REPORT -------- Dictated By: CLIVE SOTO Dictated Date: 06/26/2025 08:04 ET Assigned Physician: CLIVE SOTO Reviewed and Electronically Signed By: CLIVE SOTO Signed Date: 06/26/2025 08:15 ET Workstation ID: [id number] Transcribed By: Self Edit Transcribed Date: 06/26/2025 08:04 ET Narrative 06/26/2025 8:15 AM EST PROCEDURE: Head and neck CTA INDICATION: R arm heaviness and R proximal thigh numbness, feels like room is spinning; TECHNIQUE: Head CT without contrast. CTA of the head and neck with intravenous contrast. Multiplanar reformats. The examination was performed utilizing dose reduction techniques. 3-D postprocessing was performed on an independent workstation with direct supervision by the radiologist. 90 mL ISOVUE 370 injected intravenously without complication. Total DLP 3116 COMPARISON: No priors available. FINDINGS: CT head: No acute intracranial hemorrhage, territorial infarction, or mass effect. Albrecht-white differentiation is preserved. Brain parenchyma is within normal limits. Ventricles, sulci, and cisterns are normal in size and configuration. No hydrocephalus. Sinuses and mastoid air cells are clear. No scalp hematoma or skull fracture. CTA Neck: There is a left-sided aortic arch. Major branching arteries arising from the aortic arch are patent. Common carotid and internal carotid arteries are patent in the neck. Cervical vertebral arteries are patent. No dissection. Visualized lung apices are clear. Soft tissues of the neck are normal. Bones are normal. CTA Head: Intracranial portions of the internal carotid arteries are patent. M1 and A1 segments are patent. Distal middle cerebral and anterior cerebral arteries are patent. Vertebrobasilar system is patent. Superior cerebellar and posterior cerebral arteries are patent. Major dural venous sinuses opacify normally with contrast. No intracranial aneurysm or vascular malformation.. Procedure Note Clive Soto MD - 06/26/2025 PROCEDURE: Head and neck CTA INDICATION: R arm heaviness and R proximal thigh numbness, feels likeroom is spinning; TECHNIQUE: Head CT without contrast. CTA of the head and neck withintravenous contrast. Multiplanar reformats. The examination was performedutilizing dose reduction techniques. 3-D postprocessing was performed thiago independent workstation with direct supervision by the radiologist. 90mL ISOVUE 370 injected intravenously without complication. Total [id number] COMPARISON: No priors available. FINDINGS: CT head: No acute intracranial hemorrhage, territorial infarction, or masseffect. Albrecht-white differentiation is preserved. Brain parenchyma is withinnormal limits. Ventricles, sulci, and cisterns are normal in size and configuration. Nohydrocephalus. Sinuses and mastoid air cells are clear. No scalp hematoma or skull fracture. CTA Neck: There is a left-sided aortic arch. Major branching arteries arising fromthe aortic arch are patent. Common carotid and internal carotid arteriesare patent in the neck. Cervical vertebral arteries are patent. Nodissection. Visualized lung apices are clear. Soft tissues of the neck are normal.Bones are normal. CTA Head: Intracranial portions of the internal carotid arteries are patent. M1 andA1 segments are patent. Distal middle cerebral and anterior cerebralarteries are patent. Vertebrobasilar system is patent. Superior cerebellar and posteriorcerebral arteries are patent. Major dural venous sinuses opacify normally with contrast. No intracranial aneurysm or vascular malformation.. IMPRESSION: Normal exam -------- FINAL REPORT -------- Dictated By: CLIVE SOTO Dictated Date: 06/26/2025 08:04 ET Assigned Physician: CLIVE SOTO Reviewed and Electronically Signed By: CLIVE SOTO Signed Date: 06/26/2025 08:15 ET Workstation ID: [id number] Transcribed By: Self Edit Transcribed Date: 06/26/2025 08:04 ET Dia Copeland MD [facility] CT PROCEDURES Final Result * (ABNORMAL) CBC auto differential (06/26/2025 6:05 AM EST) WBC 10.2 4.8 - 10.8 K/mcL LAB HEMETOLOGY METHOD 06/26/2025 6:29 AM [facility] RBC 4.70 3.80 - 4.80 M/mcL LAB HEMETOLOGY METHOD 06/26/2025 6:29 AM [facility] Hemoglobin 13.2 11.5 - 16.0 g/dL LAB HEMETOLOGY METHOD 06/26/2025 6:29 AM [facility] Hematocrit 40.4 35.0 - 47.0 % LAB HEMETOLOGY METHOD 06/26/2025 6:29 AM [facility] MCV 86.0 79.0 - 98.0 FL LAB HEMETOLOGY METHOD 06/26/2025 6:29 AM [facility] MCH 28.1 27.0 - 32.0 pcg LAB HEMETOLOGY METHOD 06/26/2025 6:29 AM [facility] MCHC 32.7 32.0 - 37.0 g/dL LAB HEMETOLOGY METHOD 06/26/2025 6:29 AM [facility] RDW 12.8 11.0 - 15.0 % LAB HEMETOLOGY METHOD 06/26/2025 6:29 AM [facility] Platelets 322 130 - 400 K/mcL LAB HEMETOLOGY METHOD 06/26/2025 6:29 AM [facility] MPV 11.1(H) 7.0 - 11.0 FL LAB HEMETOLOGY METHOD 06/26/2025 6:29 AM [facility] NRBC 0.0 <1.0 % LAB HEMETOLOGY METHOD 06/26/2025 6:29 AM [facility] NRBC Absolute 0.00 <0.10 K/mcL LAB HEMETOLOGY METHOD 06/26/2025 6:29 AM [facility] Neutrophils Relative 52.8 % LAB HEMETOLOGY METHOD 06/26/2025 6:29 AM [facility] Lymphocytes Relative 38.1 % LAB HEMETOLOGY METHOD 06/26/2025 6:29 AM [facility] Monocytes Relative 6.4 % LAB HEMETOLOGY METHOD 06/26/2025 6:29 AM [facility] Eosinophils Relative 1.9 % LAB HEMETOLOGY METHOD 06/26/2025 6:29 AM [facility] Basophils Relative 0.6 % LAB HEMETOLOGY METHOD 06/26/2025 6:29 AM [facility] Immature Granulocytes Relative 0.2 % LAB HEMETOLOGY METHOD 06/26/2025 6:29 AM [facility] Neutrophils Absolute 5.38 1.50 - 7.00 K/mcL LAB HEMETOLOGY METHOD 06/26/2025 6:29 AM [facility] Lymphocytes Absolute 3.87 1.00 - 5.00 K/mcL LAB HEMETOLOGY METHOD 06/26/2025 6:29 AM EST [facility] Monocytes Absolute 0.65 0.20 - 1.00 K/mcL LAB HEMETOLOGY METHOD 06/26/2025 6:29 AM EST [facility] Eosinophils Absolute 0.19 0.00 - 0.50 K/mcL LAB HEMETOLOGY METHOD 06/26/2025 6:29 AM EST [facility] Basophils Absolute 0.06 0.00 - 0.20 K/[facility] LAB HEMETOLOGY METHOD 06/26/2025 6:29 AM EST [facility] Immature Granulocytes Absolute 0.02 0.00 - 0.03 K/[facility] LAB HEMETOLOGY METHOD 06/26/2025 6:29 AM EST [facility] Blood Venous blood specimen / Unknown Venipuncture / Unknown 06/26/2025 6:05 AM EST 06/26/2025 6:22 AM EST Shaunna JEAN LAB BLOOD ORDERABLES Fin al Result [facility] [address] [place] [address], [place] [phone] * APTT (06/26/2025 6:05 AM EST) aPTT 37.1 24.1 - 39.3 sec LAB COAGULATION METHOD 06/26/2025 6:55 AM EST [facility] Blood Venous blood specimen / Unknown Venipuncture / Unknown 06/26/2025 6:05 AM EST 06/26/2025 6:22 AM EST Shaunna JEAN LAB BLOOD ORDERABLES Fin al Result [facility] [address] [place] [address], [place] [phone] * Protime-INR (06/26/2025 6:05 AM EST) Pathologist [facility] Protime 11.6 10.6 - 13.9 sec LAB COAGULATION METHOD 06/26/2025 6:54 AM EST [facility] INR 0.9 LAB COAGULATION METHOD 06/26/2025 6:54 AM EST [facility] Blood Venous blood specimen / Unknown Venipuncture / Unknown 06/26/2025 6:05 AM EST 06/26/2025 6:22 AM EST Shaunna JEAN LAB BLOOD ORDERABLES Fin al Result Performing Organization Address [facility]/ZIP Co de Phone Number [facility] [address] [place] [address], [place] [phone] * hCG, serum, qualitative (06/26/2025 6:05 AM EST) [facility] hCG Qual Negative Negative 06/26/2025 6:45 AM EST [facility] Blood Venous blood specimen / Unknown Venipuncture / Unknown 06/26/2025 6:05 AM EST 06/26/2025 6:22 AM EST Shaunna JEAN LAB BLOOD ORDERABLES Fin al Result [facility] [address] [place] [address], [place] [phone] * Comprehensive metabolic panel (06/26/2025 6:05 AM EST) [facility] Sodium 140 133 - 145 mmol/L 06/26/2025 6:48 AM [facility] Potassium 4.1 3.5 - 5.5 mmol/L 06/26/2025 6:48 AM EST [facility] Chloride 106 96 - 110 mmol/L 06/26/2025 6:48 AM [facility] CO2 25 21 - 32 mmol/L 06/26/2025 6:48 AM [facility] Anion Gap 9 3 - 11 06/26/2025 6:48 AM [facility] Glucose 85 70 - 100 mg/dL 06/26/2025 6:48 AM [facility] BUN 18 5 - 25 mg/dL 06/26/2025 6:48 AM [facility] Creatinine 0.75 0.50 - 1.10 mg/dL 06/26/2025 6:48 AM [facility] eGFR 112 >=60 mL/min/1. 73m2 06/26/2025 6:48 AM [facility] Comment:Calculation based on the Chronic Kidney Disease Epidemiology Collaboration (CKD-EPI) equation refit without adjustment for race. BUN/Creatinine Ratio 24.0 06/26/2025 6:48 AM [facility] Calcium 9.4 8.5 - 10.5 mg/dL 06/26/2025 6:48 AM [facility] AST (SGOT) 18 10 - 42 unit/L 06/26/2025 6:48 AM [facility] ALT (SGPT) 19 10 - 60 unit/L 06/26/2025 6:48 AM [facility] Alkaline Phosphatase 83 42 - 121 unit/L 06/26/2025 6:48 AM [facility] Total Protein 7.4 6.0 - 8.0 g/dL 06/26/2025 6:48 AM [facility] Albumin 4.7 3.2 - 5.0 g/dL 06/26/2025 6:48 AM [facility] Total Bilirubin 0.3 0.0 - 1.4 mg/dL 06/26/2025 6:48 AM EST [facility] Blood Venous blood specimen / Unknown Venipuncture / Unknown 06/26/2025 6:05 AM EST 06/26/2025 6:22 AM EST Shaunna JEAN LAB BLOOD ORDERABLES Fin al Result [facility] [address] [place] [address], * CT Head wo Contrast (06/26/2025 12:41 AM EST) Anatomical Region Laterality Modality Head and Neck Computed Tomogra phy 06/26/2025 12:5 9 AM EST Impressions 06/26/2025 12:59 AM EST Impression: 1. No acute intracranial hemorrhage or process identified. This document has been electronically signed by: Gail Cao MD on 06/26/2025 00:59:12 Narrative 06/26/2025 12:59 AM EST INDICATION: dizzy Exam: CT Brain without contrast Comparison: None Clinical history: Dizzy Findings: No acute intracranial hemorrhage Ventricles are normal in size and position. No intracranial mass No midline shift. No abnormal extra-axial fluid collections. No skull fracture identified. Visualized paranasal sinuses are clear. Procedure Note Gail Cao MD - 06/26/2025 INDICATION: dizzy Exam: CT Brain without contrast Comparison: None Clinical history: Dizzy Findings: No acute intracranial hemorrhage Ventricles are normal in size and position. No intracranial mass No midline shift. No abnormal extra-axial fluid collections. No skull fracture identified. Visualized paranasal sinuses are clear. IMPRESSION: Impression: 1. No acute intracranial hemorrhage or process identified. This document has been electronically signed by: Gail Cao MD on 06/26/2025 00:59:[address] PROCEDURES Final Result * (ABNORMAL) POCT Glucose, blood (06/26/2025 12:30 AM EST) Glucose POCT 149(H) 70 - 100 mg/dL 06/26/2025 12:30 AM EST [facility] Blood Capillary blood specimen / Unknown 06/26/2025 12:30 AM EST 06/26/2025 12:31 AM EST Generic Provider Poct LAB POINT OF CARE TEST DOCKED DEVICE UNSOLICITED RESULTS Final Result [facility] [address] [place] [address], [place] [phone] * POC , urine manually resulted (06/26/2025 12:22 AM EST) HCG, Ur POC Negative Negative POC hCG Int QC Pass? Yes Yes Urine Urine specimen obtained by clean catch procedure / Unknown 06/26/2025 12:22 AM EST Shaunna JEAN POINT OF CARE TEST ENTER /EDIT ORDERABLES Final Result * ECG 12 lead (06/26/2025 12:14 AM EST) Ventricular Rate ECG 79 BPM GEMUSE Atrial Rate 79 BPM GEMUSE P-R Interval 132 ms GEMUSE QRS Duration 84 ms GEMUSE Q-T Interval 392 ms GEMUSE QTc 449 ms GEMUSE P Wave Simpson 64 degrees GEMUSE R Simpson 73 degrees GEMUSE T Simpson 58 degrees GEMUSE ECG Interpretation Normal sinus rhythm with sinus arrhythmia Normal ECG When compared with ECG of 22-JUL-2022 02:00, No significant change was found Confirmed by Truman GUERRA JOHN ([id number]) on 06/26/2025 9:26:46 PM GEMUSE 06/26/2025 12:1 4 AM EST 06/26/2025 9:26 PM EST Shaunna JEAN ECG ORDERABLES Final Re sult GEMUSE * Chlamydia trachomatis and Neisseria gonorrhoeae molecular study (05/23/2024 11:19 AM EST) Neisseria gonorrhoeae PCR Negative Negative LAB MOLECULAR DIAGNOSTICS METHOD 05/24/2024 8:53 AM EST [facility] Chlamydia trachomatis PCR Negative Negative LAB MOLECULAR DIAGNOSTICS METHOD 05/24/2024 8:53 AM EST [facility] Swab Vaginal structure / Unknown Non-blood Collection / Unknown 05/23/2024 11:19 AM EST 05/23/2024 11:19 AM EST Michelle Banegas CNM LAB MICROBIOLOGY - GENERAL O RDERABLES Final Result [facility] [address] [place] [address], * Pap Smear (12/19/2019) Pap smear Negative, Abstracted Historical Provider MD HEALTH MAINTENANCE Final Result from Last 3 Months or Most Recently Relevant to Health Maintenance Insurance [place] - [place] [facility] Advance Directives Documents on File Type Date Recorded Patient Chief Technical Officer Expl anation Health Care Decision (hx) 07/21/2018 AD JOHNSON DIRECTIVE Health Care Decision (hx) 07/21/2018 AD JOHNSON DIRECTIVE Health Care Decision (hx) 07/21/2018 AD JOHNSON DIRECTIVE Health Care Decision (hx) 07/21/2018 AD JOHNSON DIRECTIVE Health Care Decision (hx) 07/21/2018 AD JOHNSON DIRECTIVE Health Care Decision (hx) 07/21/2018 AD JOHNSON DIRECTIVE Health Care Decision (hx) 07/21/2018 AD JOHNSON DIRECTIVE Health Care Decision (hx) 07/21/2018 AD JOHNSON DIRECTIVE Health Care Decision (hx) 07/21/2018 AD JOHNSON DIRECTIVE Health Care Decision (hx) 07/21/2018 AD JOHNSON DIRECTIVE Health Care Decision (hx) 07/21/2018 AD JOHNSON DIRECTIVE * Full Code - Confirmed (Latest Code Status on File) Date Activated Date Inactivated Comments 12/07/2024 11:44 AM 12/07/2024 2:51 PM This code s tatus was ascertained in the following way: Code status discussion: discussion with patient To update the patient's code status, place a code status order. Do not modify or discontinue any currently active code status orders. * Full Code - Default Date Activated Date Inactivated Comments 12/02/2024 5:37 AM 12/04/2024 3:21 PM This is orde r is used when code status has not been discussed with the patient, or code status is otherwise unknown/unconfirmed To update the patient's code status, place a code status order. Do not modify or discontinue any currently active code status orders. * Full Code - Default Date Activated Date Inactivated Comments 12/01/2024 7:27 AM 12/01/2024 9:34 AM This is orde r is used when code status has not been discussed with the patient, or code status is otherwise unknown/unconfirmed To update the patient's code status, place a code status order. Do not modify or discontinue any currently active code status orders. Care Teams Private Tutor Relationship Specialty Start Date End Date Hubert oCx MD [address] [place] [id number] PCP - General Internal Medicine 10/05/17
[2025-07-08 08:07] VITALS: BP 112/80; PULSE 61; O2SAT 97; BMI 28.7
--- NOTE | 2025-07-08 08:07 | MHC.PC.OV ---
Vital Signs 07/08/25 08:07 Height 5 ft 3 in Weight 162 lb BMI 28.7 BP 112/80 Blood Pressure Location Lt brachial Position Sitting Pulse 61 Pulse Source Pulse Oximeter Pulse Oximetry (%) 97 Intake Visit Reasons: Annual PE- PHQ-9 needed Allergies No Known Allergies Allergy (Verified 07/08/25 08:09) Medication List - Last Reconciled 07/08/25 by Hubert Cox MD No Known Home Meds Tobacco use date assessed: 07/08/25 Dental Screening Dental Screen Date: 07/08/25 Did you have a dental visit in the last 12 months?: Yes Did you have a dental problem in the last 6 months where you did not have access to dental care?: No Was dental information given to patient?: Patient has dentist HPI HPI Comments History of Present Illness Details History of Present Illness The patient is a 25 year old female presenting with an annual physical examination. Transient Unilateral Paresthesia: - The patient experienced an episode of unilateral numbness approximately two weeks ago while lying in bed. - She was evaluated at [facility], where a CAT scan was performed. - She reports that the initial incident occurred only once, but she experienced a minor recurrence one day later. - Patient was diagnosed with complicated migrain, she has H/o migraine headaches and use to take amitryptline Chronic Cough: - The patient reports a persistent cough that occurs most of the time, with very brief symptom-free intervals. - Associated symptoms include infrequent sneezing. - She denies nasal congestion. Social History: - The patient is and has four sons. - Her youngest child is 7 months old, and her oldest is 7 years old. - She is not currently . Health Maintenance - Blood tests were ordered. - Influenza vaccine was recommended and administered during the visit. - Recommends follow-up every 6 months to a year. REPLACED BY [facility] Surgical History No pertinent past surgical history Family History Father HTN (hypertension) Mother No problems noted. Maternal Aunt Breast cancer Social History Housing: House Patient Tobacco Use Status: Never used Tobacco e-Cigarette/Vaping Use: Never Used service: No Current occupational status: unemployed Cognitive needs: No Hearing needs: No Vision needs: No Female Reproductive History Menstrual Age of Menarche: 8 Questionnaire PHQ-9 Over the last 2 weeks, how often have you been bothered by any of the following problems? 1. Little interest or pleasure in doing things: not at all 2. Feeling down, depressed, or hopeless: not at all 3. Trouble falling or staying asleep, or sleeping too much: not at all 4. Feeling tired or having little energy: not at all 5. Poor appetite or overeating: not at all 6. Feeling bad about yourself - or that you are a failure or have let yourself or your family down: not at all 7. Trouble concentrating on things, such as reading the newspaper or watching television: not at all 8. Moving or speaking so slowly that other people could have noticed. Or the opposite - being so fidgety or restless that you have been moving around a lot more than usual: not at all 9. Thoughts that you would be better off or of hurting yourself in some way: not at all Total score: 0 Depression Screening Interpretation: Negative Depression Screening Done: Yes 11799 - PHQ-9 Billing: Yes Source: Developed by Drs. Santos Amato, Caitlin Adams, Riley Silva and colleagues, with an educational chastity from [employer]. Thrive Questionnaire Date Thrive assessed: 01/24/24 CEDRICK-7 AMB Questionnaire CEDRICK-7 Date CEDRICK - 7 assessed: 01/24/24 Feeling nervous, anxious, or on edge: 0 = Not at all Not being able to stop or control worryin = Not at all Worrying too much about different things: 0 = Not at all Trouble relaxin = Not at all Being so restless that it is hard to sit still: 0 = Not at all Becoming easily annoyed or irritable: 0 = Not at all Feeling afraid as if something awful might happen: 0 = Not at all Total CEDRICK-7 score (0-4 normal; 5-9 mild; 10-14 moderate; 15-21 severe): 0 Source: Developed by Drs. Santos Amato, Caitlin Adams, Riley Silva and colleagues, with an educational chastity from [employer]. CEDRICK-7 Assessment Billing CEDRICK-7 Assessment Tool: CEDRICK-7 Assessment 69070 Review of Systems Narrative Review of Systems - General: No fever no chills - Neurological: no dizziness - Ear nose throat: No sore throat no hearing difficulty no ear pain - Cardiovascular: No syncope, no chest pain, no palpitations - Gastrointestinal: No nausea vomiting or diarrhea - Endocrine: No polyuria polydipsia no heat intolerance - Genitourinary: No dysuria - Skin: No new complaints Physical exam (Primary Care) Vital Signs: Last Vital Signs Pulse 61 07/08/25 08:07 BP 112/80 07/08/25 08:07 Pulse Ox 97 07/08/25 08:07 BMI result Body Mass Index 28.7 Tobacco/Smoking Status: Tobacco use Status Tobacco use date assessed 07/08/25 07/08/25 08:09 Patient Tobacco Use Status Never used Tobacco 07/08/25 08:09 e-Cigarette/Vaping Use Never Used 07/08/25 08:09 Depression Screening Interpretation: Negative Thrive Assessment: Date of Thrive Assessment Date Thrive assessed 01/24/24 07/08/25 08:09 Narrative Physical Exam General: Cooperative, healthy appearing, comfortable, no acute distress Orientation: Patient oriented x3 Head: Normal to inspection Ears: Within normal limit visually Nose: Normal external nose present, slight inflammation noted Face and sinus: Normal facial exam Eyes: Appearance normal, extraocular movement intact pupils reactive Neck: Normal visual inspection and supple Respiratory: Normal respiratory effort and able to speak in complete sentences. Clear to auscultation, no stridor Cardiovascular: S1 and S2 RRR GI: Normal to inspection. Soft to palpation and nontender Skin: Turgor normal, no acute findings Neuro: Patient oriented x3, motor sensory intact, balance intact, tandem pass Extremities: Normal to inspection, ROM intact all joints . Office Procedures Flu Questionnaire Does the patient have a severe egg allergy?: No Does the patient have severe life threatening allergies?: No Does the patient have a fever or illness today?: No Has the patient ever had Guillain-[place] Syndrome?: No Has the patient ever had any past reaction to a flu shot?: No Immunizations Fluarix [id number] (PF) 45 mcg (15 mcg x 3)/0.5 mL IM syringe Performing Provider: Hubert Cox MD Performing [facility]: [facility] Administered by: Khadra Leary MA on 07/08/25 08:34 Dose Route Admin Location Dispensed Lot Number Expiration Date [facility] [employer] 0.5 mL IM Left Deltoid 0.5 mL [id number] 01/13/26 [id number] [place] VIS Given Date VIS Provided VIS Publication Date 07/08/25 Single Vaccine 24 Eligibility Eligibility Date Funding Source Not [facility] Eligible 07/08/25 Private Coding Level of Care Code Est Pt Level 3 (23639) Est Pt Prev Care 18-39y(23390) Diagnoses Encounter for general adult medical examination with abnormal findings Z00.01 Dizziness R42 Intractable periodic headache syndrome G43.C1 Intractability: intractable Migraine type: periodic headache syndrome Vitamin D deficiency E55.9 Additional Codes PHQ-9 - 66929 - PHQ-9 Billing: Yes ([id number]) CEDRICK-7 Assessment Billing - CEDRICK-7 Assessment Tool: CEDRICK-7 Assessment 18084 ([id number]) Assessment & Plan Assessment & Plan (1) Encounter for general adult medical examination with abnormal findings: Code(s): Z00.01 - Encounter for general adult medical examination with abnormal findings Category: Medical (2) Dizziness: Code(s): R42 - Dizziness and giddiness Category: Medical (3) Migraine headache: Code(s): G43.909 - Migraine, unspecified, not intractable, without status migrainosus Category: Medical Qualifiers: Intractability: intractable Migraine type: periodic headache syndrome Qualified Code(s): G43.C1 - Periodic headache syndromes in child or adult, intractable (4) Vitamin D deficiency: Code(s): E55.9 - Vitamin D deficiency, unspecified Category: Medical Plan Patient Instructions - Your prescription for amitriptyline will be sent to your pharmacy. You may start taking it again at night as you did before. - For your cough, try two [id number] medicines together: Pepcid for acid reflux and Zyrtec for allergies. - Please go for your blood test today after checking out from the clinic. - You will receive your flu vaccine today in the office. - Please schedule a follow-up appointment in about six months to one year. Orders: Orders Comprehensive [place]. Panel Fast Today E55.9 - Vitamin D deficiency, unspecified, G43.C1 - Periodic headache syndromes in child or adult, intractable, R42 - Dizziness and giddiness, Z00.01 - Encounter for general adult medical examination with abnormal findings Vitamin D 25-OH (D2 and D3) Today E55.9 - Vitamin D deficiency, unspecified, G43.C1 - Periodic headache syndromes in child or adult, intractable, R42 - Dizziness and giddiness, Z00.01 - Encounter for general adult medical examination with abnormal findings Influenza [id number] Immunization Today Z23 - Encounter for immunization Complete Blood Count Auto Diff Today E55.9 - Vitamin D deficiency, unspecified, G43.C1 - Periodic headache syndromes in child or adult, intractable, R42 - Dizziness and giddiness, Z00.01 - Encounter for general adult medical examination with abnormal findings Lipid Panel Today E55.9 - Vitamin D deficiency, unspecified, G43.C1 - Periodic headache syndromes in child or adult, intractable, R42 - Dizziness and giddiness, Z00.01 - Encounter for general adult medical examination with abnormal findings TSH reflex Free T4 Today E55.9 - Vitamin D deficiency, unspecified, G43.C1 - Periodic headache syndromes in child or adult, intractable, R42 - Dizziness and giddiness, Z00.01 - Encounter for general adult medical examination with abnormal findings Medications: Refilled amitriptyline 10 mg PO BEDTIME 90 tabs 0RF
== END 2025-07-08 08:29 | disposition home or self-care (01) ==
LOC: HO.HMCC 08:00
PROVIDERS: PCP Internal Medicine; Visit Provider Internal Medicine
DX: Z00.01 Encounter for general adult medical examination with abnormal findings (principal); R42 Dizziness and giddiness; G43.C1 Periodic headache syndromes in child or adult, intractable; E55.9 Vitamin D deficiency, unspecified; Z23 Encounter for immunization